=== PATIENT | male | born 1985 | race Caucasian/White ===

== ENCOUNTER 2021-11-22 19:52 | Emergency (ER) | payer OTHER ==
[~2021-11-22] VITALS: Ht 167.6 cm; Wt 77.1 kg
== END 2021-11-22 23:57 | disposition home or self-care (01) ==
LOC: ER 19:52
DX: U07.1 COVID-19 (principal)

== ENCOUNTER 2021-11-29 20:13 | Emergency (ER) | payer OTHER ==
[~2021-11-29] VITALS: Ht 167.6 cm; Wt 74.8 kg
== END 2021-11-30 00:01 | disposition home or self-care (01) ==
LOC: ER 20:13
DX: G43.909 Migraine, unspecified, not intractable, without status migrainosus (principal); R11.0 Nausea

== ENCOUNTER → 2022-12-11 | Emergency (ER) | payer OTHER ==
[~2022-12-11] VITALS: Ht 167.6 cm; Wt 83.9 kg
== END | disposition left against medical advice (07) ==
LOC: ER 23:33
DX: Z53.21 Procedure and treatment not carried out due to patient leaving prior to being seen by health care provider (principal)

== ENCOUNTER 2023-05-16 22:03 | Emergency (ER) | payer OTHER ==
[~2023-05-16] VITALS: Ht 167.6 cm; Wt 86.2 kg
[2023-05-16 23:20] LABS: HEMATOCRIT 44.2 % (39.0-48.0); HEMOGLOBIN 14.8 g/dL (13-16.00); MEAN CELL VOLUME 89.7 fL (80.0-100.00); MEAN CORPUSCULAR HGB CONC 33.4 g/dl (32.0-36.0); RED BLOOD COUNT 4.93 M/uL (4.00-6.00); RED CELL DISTRIBUTION WIDTH 12.6 % (11.5-14.5)
[2023-05-16 23:21] LABS: PLATELET COUNT 143 K/uL (150-450)
[2023-05-16 23:39] LABS: ALBUMIN 3.8 gm/dL (3.4-5.0); BILIRUBIN TOTAL 0.58 mg/dL (0.3-1.2); CALCIUM 8.3 mg/dL (8.5-10.1); CREATININE SERUM 1.15 mg/dL (0.70-1.30); GFR 70.79; GLOBULINA 3.2 G/DL (2.4-3.5); POTASSIUM 3.61 mEq/L (3.5-5.1)
[2023-05-16] MEDS ORDERED: ZOFRAN8 MG PO (23:52)
[2023-05-16] MEDS ORDERED: LEVSIN/SL0.125 MG SL (23:52)
[2023-05-16] MEDS ORDERED: PEPCID AC20 MG PO (23:52)
== END 2023-05-17 00:09 | disposition home or self-care (01) ==
LOC: ER 22:04
PROVIDERS: General Practice
DX: K52.9 Noninfective gastroenteritis and colitis, unspecified (principal)

== ENCOUNTER 2024-04-07 23:38 | Emergency (ER) | payer OTHER ==
[~2024-04-07] VITALS: Ht 170.2 cm; Wt 85.3 kg
[~2024-04-07 23:38] MED LIST: ALBUTEROL2.5 MG/3 M IH; BUDESONIDE0.5 MG/2 M IH; LEVSIN/SL0.125 MG SL; PEPCID AC20 MG PO; ZOFRAN8 MG PO
[2024-04-08] MEDS ORDERED: KETOROLAC TROMETHAMINE 60 MG VIAL IM STA (04:30)
[2024-04-08] MEDS ORDERED: ACETAMINOPHEN 500 MG GEL..CAP PO STA (04:31)
[2024-04-08] MEDS ORDERED: ACETAMINOPHEN WITH CODEINE 1 UDTAB TABLET PO STA (04:31)
[2024-04-08] MEDS ORDERED: KETOROLAC TROMETHAMINE 60 MG VIAL IM ONE (04:36)
[2024-04-08] MEDS ORDERED: ACETAMINOPHEN 500 MG GEL..CAP PO ONE (04:36)
== END 2024-04-08 05:05 | disposition home or self-care (01) ==
LOC: ER 23:40
DX: S62.635A Displaced fracture of distal phalanx of left ring finger, initial encounter for closed fracture (principal); X58.XXXA Exposure to other specified factors, initial encounter; Y93.67 Activity, basketball; Y92.89 Other specified places as the place of occurrence of the external cause; Y99.9 Unspecified external cause status

== ENCOUNTER → 2024-07-28 | Emergency (ER) | payer OTHER ==
[~2024-07-28] VITALS: Ht 162.6 cm; Wt 86.2 kg
== END | disposition left against medical advice (07) ==
LOC: ER 22:00
DX: Z53.21 Procedure and treatment not carried out due to patient leaving prior to being seen by health care provider (principal)

== ENCOUNTER 2024-12-13 15:40 | Emergency (ER) | payer OTHER ==
[~2024-12-13] VITALS: Ht 167.6 cm; Wt 76.7 kg
[2024-12-13 16:18] VITALS: BP 122/82; O2SAT 100
[2024-12-13] MEDS ORDERED: AZITHROMYCIN 500 MG TABLET PO ONE ×2 (17:00→17:01)
[2024-12-13] MEDS ORDERED: GUAIFENESIN/DEXTROMETHORPHAN 100MG/10ML BLIST.PACK PO ONE (17:00)
[2024-12-13] MEDS ORDERED: DEXAMETHASONE SODIUM PHOSPHATE 4 MG/ML VIAL IM ONE (17:00)
[2024-12-13] MEDS ORDERED: DEXAMETHASONE SODIUM PHOSPHATE 4 MG/ML VIAL ONE (17:02)
[2024-12-13] MEDS ORDERED: GUAIFEN/DEXTROMETHORPHAN/PE 10 ML BLIST.PACK PO ONE (17:02)
[2024-12-13 17:36] LABS: BASO % 0.5 % (0.1-1.2); EOS # 0.04 (0.04-0.54); EOS % 0.7 % (0.7-7.0); HEMATOCRIT 45.1 % (40.1-51.0); HEMOGLOBIN 15.5 g/dL (13.7-17.5); LYMPH # 1.78 (1.18-3.74); LYMPH % 30.7 % (19.3-53.1); MEAN CORPUSCULAR HEMOGLOBIN 29.7 pg (25.6-32.2); MONO % 8.6 % (4.7-12.5); NEUT # 3.44 (1.56-6.13); NEUT % 59.3 % (34.0-71.1); PLATELET COUNT 219 K/uL (163-369); RED BLOOD COUNT 5.22 M/uL (4.63-6.08); RED CELL DISTRIBUTION WIDTH 11.5 % (11.6-14.4)
[2024-12-13 18:21] LABS: COVID-19 AG NEGATIVE (NEGATIVE)
[2024-12-13 19:09] LABS: INFLUENZA A AG NEGATIVE (NEGATIVE)
[2024-12-13] MEDS ORDERED: ZITHROMAX500 MG PO (19:58)
[2024-12-13] MEDS ORDERED: TUSNEL LIQUID178 ML PO (19:58)
[2024-12-13] MEDS ORDERED: PROAIR RESPICL90 MCG IH (19:58)
== END 2024-12-13 21:05 | disposition home or self-care (01) ==
LOC: ER 15:40
PROVIDERS: General Practice
DX: J06.9 Acute upper respiratory infection, unspecified (principal); Z20.822 Contact with and (suspected) exposure to COVID-19

== ENCOUNTER 2025-01-15 22:36 | Emergency (ER) | payer OTHER ==
[~2025-01-15] VITALS: Ht 170.2 cm; Wt 72.6 kg
[~2025-01-15 22:36] MED LIST changes: +PROAIR RESPICL90 MCG IH; +TUSNEL LIQUID178 ML PO; +ZITHROMAX500 MG PO
[2025-01-15 23:56] VITALS: BP 115/76; O2SAT 99
[2025-01-16] MEDS ORDERED: DEXAMETHASONE SODIUM PHOSPHATE 4 MG/ML VIAL IM STA (05:15)
[2025-01-16] MEDS ORDERED: KETOROLAC TROMETHAMINE 60 MG VIAL IM STA (05:15)
[2025-01-16] MEDS ORDERED: DEXAMETHASONE SODIUM PHOSPHATE 4 MG/ML VIAL ONE (05:36)
[2025-01-16] MEDS ORDERED: KETOROLAC TROMETHAMINE 60 MG VIAL IM ONE (05:36)
== END 2025-01-16 05:50 | disposition home or self-care (01) ==
LOC: ER 22:43
DX: K64.4 Residual hemorrhoidal skin tags (principal)